=== PATIENT | female | born 1995 | race African-American/Black ===

== ENCOUNTER 2021-01-17 14:40 | Emergency (ER) | payer BC ==
[~2021-01-17] VITALS: Ht 167.6 cm; Wt 70.0 kg
[~2021-01-17 14:40] MED LIST: AMOXICILLIN500 MG PO; AMOXICILLIN875 MG PO; AUGMENTIN875TAB PO; AZITHROMYCIN250 MG PO; CLARITIN10 M2 PO; CORTISPORIN OTI10 M2 AD; DEPO-MEDROL40 MG/ML IM; FLEXERIL5 M1 OR; FLEXERIL5 M1 PO; FLONASE SPRAY50 MC1; FLUTICASONE50 MCG; MEDDOSEPAK PO; MOTRIN200 MG; MOTRIN800 MG/TAB PO; NAPROSYN500 MG OR; NAPROSYN500 MG PO; PREVACID30 M2 PO; ROCEPHIN 1 GM1 GM IJ; ROCEPHIN 1 GM1 GM IM; SINGULAIR PO; TRAMADOL HCL50 MG PO; ZITHROMAX250 MG PO; ZOFRAN ODT4 MG PO; ZYRTEC10 M1; [UNRECOGNIZED DRUG - OTHER]
[2021-01-17 16:46] LABS: URINE BILIRUBIN - DIPSTICK NEGATIVE (NEGATIVE); URINE BLOOD DIPSTICK MODERATE (NEGATIVE); URINE COLOR YELLOW; URINE GLUCOSE - DIPSTICK NEGATIVE (NEGATIVE); URINE KETONE 40 mg/dL (NEGATIVE); URINE LEUK ESTERASE NEGATIVE (NEGATIVE); URINE PROTEIN - DIPSTICK NEGATIVE (NEG-TRACE); URINE UROBILINOGEN - DIPSTICK 0.2 E.U./dL (0.2)
[2021-01-17 16:47] LABS: URINE NITRITE - DIPSTICK NEGATIVE (Negative)
[2021-01-17 16:54] LABS: URINE SQUAMOUS EPITHELIAL CELL FEW EPI/hpf (0-FEW); URINE WBC 0-2 WBC/hpf (0-5)
[2021-01-17] MEDS ORDERED: TORADOL PO (17:09)
[2021-01-17] MEDS ORDERED: ONDANSETRON4 MG PO (17:09)
[2021-01-17 17:51] VITALS: BP 140/84
== END 2021-01-17 17:52 | disposition home or self-care (01) | DRG 103 ==
LOC: ED 14:40
PROVIDERS: Family Medicine
DX: R51.9 Headache, unspecified (principal); R10.30 Lower abdominal pain, unspecified; R19.7 Diarrhea, unspecified; F41.9 Anxiety disorder, unspecified

== ENCOUNTER 2021-01-25 19:08 | Emergency (ER) | payer BC ==
[~2021-01-25] VITALS: Ht 167.6 cm; Wt 50.0 kg
[~2021-01-25 19:08] MED LIST changes: +ONDANSETRON4 MG PO; +TORADOL PO
[2021-01-25 20:30] LABS: HEMATOCRIT 35.7 % (37.0-47.0); HEMOGLOBIN 12.2 g/dl (12.0-16.0); IMMATURE GRANULOCYTES 0.1 % (0.0-5.0); MEAN CELL VOLUME 82.8 fL CALC (80.0-100.0); MEAN CORPUSCULAR HGB 28.3 pG CALC (26.0-32.0); MEAN CORPUSCULAR HGB CONC 34.2 g/dL CAL (32.0-36.0); NEUT# 2.98 thou/uL (2.00-7.15); RED BLOOD COUNT 4.31 mill/uL (4.20-5.60); RED CELL DISTRI WIDTH 13.7 % (11.5-15.5)
[2021-01-25 20:32] LABS: URINE BILIRUBIN - DIPSTICK NEGATIVE (NEGATIVE); URINE BLOOD DIPSTICK TRACE-INTACT (NEGATIVE); URINE COLOR YELLOW; URINE GLUCOSE - DIPSTICK NEGATIVE (NEGATIVE); URINE KETONE 40 mg/dL (NEGATIVE); URINE LEUK ESTERASE NEGATIVE (NEGATIVE); URINE PROTEIN - DIPSTICK NEGATIVE (NEG-TRACE); URINE SPECIFIC GRAVITY 1.025; URINE UROBILINOGEN - DIPSTICK 0.2 E.U./dL (0.2)
[2021-01-25 20:33] LABS: URINE NITRITE - DIPSTICK NEGATIVE (Negative)
[2021-01-25 20:48] LABS: ALBUMIN 4.5 g/dL (3.2-5.0); ALKALINE PHOSPHATASE 45 u/l (38-126); AMYLASE 117 u/l (30-110); ANION GAP 11 (6-22 (CALC)); BUN 11 mg/dL (7-17); BUN/CREATININE RATIO 16 (12-20 (CALC)); CARBON DIOXIDE 23 mmol/l (22-30); CHLORIDE 105 mmol/l (95-108); CREATININE 0.7 mg/dL (0.5-1.0); GFR > 60 ML/MIN (>=60 (CALC)); GFR FOR AFR.AMER. > 60 ML/MIN (>=60 (CALC)); LIPASE 43 u/l (23-300); POTASSIUM 3.9 mmol/l (3.5-5.1); SGOT/AST 24 u/l (14-36); SODIUM 136 mmol/l (137-146); TOTAL PROTEIN 7.9 g/dL (6.3-8.2)
[2021-01-25 20:55] LABS: BILIRUBIN, TOTAL 0.7 mg/dL (0.0-1.4)
[2021-01-25] MEDS ORDERED: MIRALAX17 GM PO (21:28)
[2021-01-25] MEDS ORDERED: CITRATE OF MEGNESIA PO (21:28)
[2021-01-25 21:55] VITALS: BP 118/77
== END 2021-01-25 22:04 | disposition home or self-care (01) | DRG 392 ==
LOC: ED 19:08
PROVIDERS: Family Medicine
DX: K59.00 Constipation, unspecified (principal); F41.9 Anxiety disorder, unspecified

== ENCOUNTER 2021-06-02 18:58 | Emergency (ER) | payer BC ==
[~2021-06-02] VITALS: Ht 167.6 cm; Wt 50.9 kg
[~2021-06-02 18:58] MED LIST changes: +CITRATE OF MEGNESIA PO; +MIRALAX17 GM PO
[2021-06-02 19:38] LABS: HEMATOCRIT 38.1 % (37.0-47.0); HEMOGLOBIN 13.1 g/dl (12.0-16.0); MEAN CELL VOLUME 83.9 fL CALC (80.0-100.0); MEAN CORPUSCULAR HGB 28.9 pG CALC (26.0-32.0); MEAN CORPUSCULAR HGB CONC 34.4 g/dL CAL (32.0-36.0); NEUT# 3.93 thou/uL (2.00-7.15); RED BLOOD COUNT 4.54 mill/uL (4.20-5.60); RED CELL DISTRI WIDTH 13.7 % (11.5-15.5)
[2021-06-02 19:47] LABS: D-DIMER 0.7 mg/L (0.19-0.60)
[2021-06-02 19:51] LABS: ACT PARTIAL THROMBO TIME 26.7 SECONDS (20.0-32.5); PROTHROMBIN TIME 10.7 SECONDS (9.0-12.5)
[2021-06-02 19:58] LABS: ALBUMIN 4.7 g/dL (3.2-5.0); ALKALINE PHOSPHATASE 66 u/l (38-126); AMYLASE 157 u/l (30-110); ANION GAP 12 (6-22 (CALC)); BILIRUBIN, TOTAL 0.9 mg/dL (0.0-1.4); BUN 14 mg/dL (7-17); BUN/CREATININE RATIO 14 (12-20 (CALC)); CARBON DIOXIDE 25 mmol/l (22-30); CHLORIDE 105 mmol/l (95-108); GFR > 60 ML/MIN (>=60 (CALC)); GFR FOR AFR.AMER. > 60 ML/MIN (>=60 (CALC)); LIPASE 81 u/l (23-300); POTASSIUM 3.3 mmol/l (3.5-5.1); SGOT/AST 27 u/l (14-36); SODIUM 138 mmol/l (137-146)
[2021-06-02 20:10] LABS: MYOGLOBIN 19 ng/mL (0 - 62)
[2021-06-02] MEDS ORDERED: TORADOL PO (21:45)
[2021-06-02 21:50] VITALS: BP 133/77
== END 2021-06-02 21:55 | disposition home or self-care (01) | DRG 313 ==
LOC: ED 18:58
PROVIDERS: Family Medicine
DX: R07.89 Other chest pain (principal); F41.9 Anxiety disorder, unspecified
CPT/HCPCS: Q9967

== ENCOUNTER 2021-06-21 09:30 | Emergency (ER) | payer OTHER, BC ==
[~2021-06-21] VITALS: Ht 167.6 cm; Wt 55.0 kg
[2021-06-21 10:50] VITALS: BP 126/87
[2021-06-21 11:10] LABS: URINE BILIRUBIN - DIPSTICK NEGATIVE (NEGATIVE); URINE BLOOD DIPSTICK MODERATE (NEGATIVE); URINE COLOR YELLOW; URINE GLUCOSE - DIPSTICK NEGATIVE (NEGATIVE); URINE KETONE NEGATIVE (NEGATIVE); URINE LEUK ESTERASE NEGATIVE (NEGATIVE); URINE PH 5.5 (4.5-8.0); URINE PROTEIN - DIPSTICK NEGATIVE (NEG-TRACE); URINE SPECIFIC GRAVITY 1.025; URINE UROBILINOGEN - DIPSTICK 0.2 E.U./dL (0.2)
[2021-06-21 11:14] LABS: URINE NITRITE - DIPSTICK NEGATIVE (Negative)
[2021-06-21 11:20] LABS: URINE SQUAMOUS EPITHELIAL CELL FEW EPI/hpf (0-FEW); URINE WBC 0-2 WBC/hpf (0-5)
== END 2021-06-21 10:45 | disposition left against medical advice (07) | DRG 951 ==
LOC: ED 09:30 → LWOBS 10:45 → ED 10:45 → LWOBS 10:50
PROVIDERS: Family Medicine
DX: Z91.19 Patient's noncompliance with other medical treatment and regimen (principal); M54.2 Cervicalgia; M54.50 Low back pain, unspecified; V89.2XXA Person injured in unspecified motor-vehicle accident, traffic, initial encounter

== ENCOUNTER 2021-07-25 16:24 | Emergency (ER) | payer BC ==
[~2021-07-25] VITALS: Ht 167.6 cm; Wt 60.0 kg
[2021-07-25 16:48] LABS: HEMATOCRIT 37.5 % (37.0-47.0); HEMOGLOBIN 13.3 g/dl (12.0-16.0); IMMATURE GRANULOCYTES 0.1 % (0.0-5.0); MEAN CELL VOLUME 82.6 fL CALC (80.0-100.0); MEAN CORPUSCULAR HGB 29.3 pG CALC (26.0-32.0); MEAN CORPUSCULAR HGB CONC 35.5 g/dL CAL (32.0-36.0); NEUT# 5.4 thou/uL (2.00-7.15); RED BLOOD COUNT 4.54 mill/uL (4.20-5.60); RED CELL DISTRI WIDTH 13.5 % (11.5-15.5)
[2021-07-25 17:02] LABS: ALBUMIN 5.1 g/dL (3.2-5.0); ALKALINE PHOSPHATASE 65 u/l (38-126); AMYLASE 142 u/l (30-110); BUN 8 mg/dL (7-17); BUN/CREATININE RATIO 13 (12-20 (CALC)); CHLORIDE 106 mmol/l (95-108); CREATININE 0.6 mg/dL (0.5-1.0); GFR > 60 ML/MIN (>=60 (CALC)); GFR FOR AFR.AMER. > 60 ML/MIN (>=60 (CALC)); LIPASE 47 u/l (23-300); POTASSIUM 3.8 mmol/l (3.5-5.1); SGOT/AST 36 u/l (14-36); SODIUM 138 mmol/l (137-146)
[2021-07-25 17:07] LABS: ANION GAP 19 (6-22 (CALC)); BILIRUBIN, TOTAL 1.4 mg/dL (0.0-1.4); CARBON DIOXIDE 17 mmol/l (22-30)
[2021-07-25 18:55] LABS: URINE BILIRUBIN - DIPSTICK NEGATIVE (NEGATIVE); URINE BLOOD DIPSTICK LARGE (NEGATIVE); URINE COLOR YELLOW; URINE GLUCOSE - DIPSTICK NEGATIVE (NEGATIVE); URINE KETONE 15 mg/dL (NEGATIVE); URINE LEUK ESTERASE NEGATIVE (NEGATIVE); URINE NITRITE - DIPSTICK NEGATIVE (Negative); URINE PROTEIN - DIPSTICK NEGATIVE (NEG-TRACE); URINE UROBILINOGEN - DIPSTICK 0.2 E.U./dL (0.2)
[2021-07-25 19:03] LABS: URINE SQUAMOUS EPITHELIAL CELL FEW EPI/hpf (0-FEW); URINE WBC 0-2 WBC/hpf (0-5)
[2021-07-25] MEDS ORDERED: ONDANSETRON4 MG PO (19:18)
[2021-07-25] MEDS ORDERED: CIPROFLOXACN500 MG PO (19:18)
[2021-07-25] MEDS ORDERED: ULTRAM50 M1 PO (19:19)
[2021-07-25 20:04] VITALS: BP 110/60
== END 2021-07-25 20:08 | disposition home or self-care (01) | DRG 392 ==
LOC: ED 16:24
PROVIDERS: Emergency Medicine
DX: K52.9 Noninfective gastroenteritis and colitis, unspecified (principal); F41.9 Anxiety disorder, unspecified; Z20.822 Contact with and (suspected) exposure to COVID-19
CPT/HCPCS: Q9967

== ENCOUNTER 2021-09-23 14:14 | Observation (INO) | payer BC ==
[~2021-09-23] VITALS: Ht 167.6 cm; Wt 50.0 kg
[~2021-09-23 14:14] MED LIST changes: +CIPROFLOXACN500 MG PO; +ULTRAM50 M1 PO
--- NOTE | 2021-09-23 14:14 | NUR ---
PATIENT TO ROOM VIA EMS STRETCHER.
--- NOTE | 2021-09-23 14:30 | NUR ---
PT SHIVERING, MOANING IN PAIN, ASKING FOR PAIN MEDICATION-DR GIRALDO NOTIFIED.
[2021-09-23 15:05] LABS: HEMATOCRIT 42.3 % (37.0-47.0); HEMOGLOBIN 14.5 g/dl (12.0-16.0); IMMATURE GRANULOCYTES 0.1 % (0.0-5.0); MEAN CELL VOLUME 84.6 fL CALC (80.0-100.0); MEAN CORPUSCULAR HGB CONC 34.3 g/dL CAL (32.0-36.0); NEUT# 6.17 thou/uL (2.00-7.15); RED CELL DISTRI WIDTH 13.8 % (11.5-15.5)
--- NOTE | 2021-09-23 15:15 | NUR ---
PT MEDICATED FOR NAUSEA AND PAIN. PT UNHAPPY WITH TORADOL AND STATES THE "LAST TIME IT DIDN'T WORK-THEY GAVE ME MORPHINE AND IT WORKED RIGHT AWAY." WILL CONTINUE TO MONITOR PATIENT.
[2021-09-23 15:25] LABS: ALBUMIN 5.2 g/dL (3.2-5.0); ALKALINE PHOSPHATASE 82 u/l (38-126); BUN 10 mg/dL (7-17); BUN/CREATININE RATIO 13 (12-20 (CALC)); CHLORIDE 103 mmol/l (95-108); CREATININE 0.8 mg/dL (0.5-1.0); GFR > 60 ML/MIN (>=60 (CALC)); GFR FOR AFR.AMER. > 60 ML/MIN (>=60 (CALC)); LIPASE 39 u/l (23-300); SGOT/AST 39 u/l (14-36); SODIUM 140 mmol/l (137-146); TOTAL PROTEIN 9.5 g/dL (6.3-8.2)
[2021-09-23 15:26] LABS: ANION GAP 19 (6-22 (CALC)); BILIRUBIN, TOTAL 0.8 mg/dL (0.0-1.4); CARBON DIOXIDE 21 mmol/l (22-30); POTASSIUM 2.9 mmol/l (3.5-5.1)
--- NOTE | 2021-09-23 16:15 | NUR ---
PT RECEIVED MORPHINE FOR PAIN, REASSESSED AND PT REPORT PAIN MINIMAL. PT STATES NAUSEA RESOLVED. WILL CONTINUE TO MONITOR.
--- NOTE | 2021-09-23 17:15 | NUR ---
ORDERS FOR MAGNESIUM AND POTASSIUM OBTAINE-DR GIRALDO INSTRUCTS TO PLACE AN ADDITION PIV. THIS RN WITH 2 UNSUCCESSFUL IV STARTS. STATISTICAL ANALYST NOTIFIED.
[2021-09-23 17:36] LABS: URINE BILIRUBIN - DIPSTICK NEGATIVE (NEGATIVE); URINE BLOOD DIPSTICK MODERATE (NEGATIVE); URINE COLOR YELLOW; URINE GLUCOSE - DIPSTICK NEGATIVE (NEGATIVE); URINE KETONE 15 mg/dL (NEGATIVE); URINE LEUK ESTERASE NEGATIVE (NEGATIVE); URINE PROTEIN - DIPSTICK NEGATIVE (NEG-TRACE); URINE UROBILINOGEN - DIPSTICK 0.2 E.U./dL (0.2)
[2021-09-23 17:38] LABS: URINE NITRITE - DIPSTICK NEGATIVE (Negative)
[2021-09-23 17:44] LABS: URINE SQUAMOUS EPITHELIAL CELL FEW EPI/hpf (0-FEW); URINE WBC 0-2 WBC/hpf (0-5)
--- NOTE | 2021-09-23 18:15 | NUR ---
PT'S IV SITES LAC AND L WRIST, CLEAN DRY AND INTACT-MEDICATIONS INFUSING PER ORDER. PT DENIES PAIN AT THIS TIME AND NO COMPLAINT OF NAUSEA. PT AWARE OF ADMISSION AND AGREEABLE. PT STABLE. WILL CONTINUE TO MONITOR.
--- NOTE | 2021-09-23 19:15 | NUR ---
PT RESTING ON ED BED, WATCHING TV. DENIES NEEDS. WILL CONTINUE TO MONITOR.
--- NOTE | 2021-09-23 19:36 | NUR ---
CALL PLACED TO ICU-NURSE UNABLE TO TAKE CALLAT THIS TIME.
--- NOTE | 2021-09-23 19:55 | NUR ---
SBAR REPORT GIVEN TO [facility]. PT TO GO TO ROOM 2.
--- NOTE | 2021-09-23 20:00 | NUR ---
PT TAKEN TO ICU VIA WHEELCHAIR IN STABLE CONDITION. PT'S PAPEWORK AND BELONGINGS HANDED OFF TO [facility].
--- NOTE | 2021-09-23 20:10 | NUR ---
RECEIVED FROM ER VIA WC. PATIENT AMBULATES WITH STABLE STANCE AND STEADY GAIT. PLACED ON TIMBER HARVESTER OPERATOR SHOWING SR. RESP NON-LABORED. LUNGS CLEAR. ABD FLAT, SOFT WITH ACTIVE BOWEL SOUNDS. IV IN LAC WITH NS INFUSING AT 125 ML/HR AND K RIDER AT 50 ML/HR. SALINE LOCK IN PLACE IN LW. BOTH SITES BENIGN. DISCUSSED PLAN OF CARE. DENIES NEEDS AT THIS TIME. CALL NICKERSON IN REACH.
--- NOTE | 2021-09-24 | NUR ---
SLEEPING SOUNDLY. RESP NON-LABORED. VSS. SR ON MONITOR.
[2021-09-24 00:13] VITALS: BP 91/45
[2021-09-24 04:00] VITALS: BP 85/50
--- NOTE | 2021-09-24 04:00 | NUR ---
ASLEEP. RESP NON-LABORED. VSS. SR ON MONITOR.
[2021-09-24 05:54] LABS: IMMATURE GRANULOCYTES 0.1 % (0.0-5.0); MEAN CELL VOLUME 86.9 fL CALC (80.0-100.0); MEAN CORPUSCULAR HGB 29.8 pG CALC (26.0-32.0); MEAN CORPUSCULAR HGB CONC 34.3 g/dL CAL (32.0-36.0); NEUT# 4.95 thou/uL (2.00-7.15); RED BLOOD COUNT 3.82 mill/uL (4.20-5.60)
[2021-09-24 05:55] LABS: HEMATOCRIT 33.2 % (37.0-47.0); HEMOGLOBIN 11.4 g/dl (12.0-16.0)
[2021-09-24 06:01] LABS: ALKALINE PHOSPHATASE 45 u/l (38-126); BUN 5 mg/dL (7-17); BUN/CREATININE RATIO 8 (12-20 (CALC)); CARBON DIOXIDE 22 mmol/l (22-30); CHLORIDE 112 mmol/l (95-108); CREATININE 0.6 mg/dL (0.5-1.0); GFR > 60 ML/MIN (>=60 (CALC)); GFR FOR AFR.AMER. > 60 ML/MIN (>=60 (CALC)); MAGNESIUM 2.2 mg/dL (1.6-2.3); SGOT/AST 21 u/l (14-36); SODIUM 136 mmol/l (137-146)
[2021-09-24 06:02] VITALS: BP 85/50
[2021-09-24 06:02] LABS: ALBUMIN 2.9 g/dL (3.2-5.0); ANION GAP 6 (6-22 (CALC)); BILIRUBIN, TOTAL 0.4 mg/dL (0.0-1.4); POTASSIUM 3.7 mmol/l (3.5-5.1); TOTAL PROTEIN 5.5 g/dL (6.3-8.2)
--- NOTE | 2021-09-24 07:00 | NUR ---
REPORT RECEIVED FORM SHANTEL DE. CARE ASSUMED.
--- NOTE | 2021-09-24 07:30 | NUR ---
PATIENT RESTING IN BED WITH EYES CLOSED AROUSES TO VERBAL STIMLLUI. ALERT AND ORIENTEDC X3. SHIFT ASSESSEMTN COMPLETED AT THIS TIME. IV PATENT X2. CALL LIGHT IN REACH. WILL CONTINUE TO MONITOR.
[2021-09-24 08:00] VITALS: BP 105/71
--- NOTE | 2021-09-24 08:07 | NUR ---
PATIENT SET UP FOR AM MEAL AT THIS ITME.
--- NOTE | 2021-09-24 09:22 | NUR ---
DR REDDY AT BEDSIDE TO DISCUSS PLAN OF CARE
[2021-09-24] MEDS ORDERED: ONDANSETRON4 MG PO (09:58)
[2021-09-24 10:00] VITALS: BP 112/61
--- NOTE | 2021-09-24 10:30 | NUR ---
IV DC'D X2. CATH TIPS INTACT PATIENT TOLERATED WELL. PATIENT GETTING DRESSED AT THIS TIME AND CALLING FOR A RIDE.
--- NOTE | 2021-09-24 11:10 | NUR ---
Discharge instructions given. Patient verbalizes understanding of same. Discharged in stable condition via Ambulatory to Home with staff. All belongings sent with pt.
== END 2021-09-24 11:10 | disposition home or self-care (01) | DRG 392 ==
LOC: ED 14:14 → ED-I 17:12 → ED 17:40 → ICU 17:41
PROVIDERS: Family Medicine; ADMIT Internal Medicine; ATTEND Internal Medicine
DX: R11.2 Nausea with vomiting, unspecified (principal); E87.6 Hypokalemia; F41.9 Anxiety disorder, unspecified; Z20.822 Contact with and (suspected) exposure to COVID-19
CPT/HCPCS: J3475; Q9967

== ENCOUNTER 2022-07-05 08:44 | Emergency (ER) | payer BC ==
[~2022-07-05] VITALS: Ht 167.6 cm; Wt 61.0 kg
[2022-07-05] VITALS (9 sets, daily range): BP systolic 125–150; BP diastolic 78–105
[2022-07-05 09:22] LABS: HEMOGLOBIN 14.3 g/dl (12.0-16.0); IMMATURE GRANULOCYTES 0.2 % (0.0-5.0); MEAN CORPUSCULAR HGB 28.9 pG CALC (26.0-32.0); MEAN CORPUSCULAR HGB CONC 34.9 g/dL CAL (32.0-36.0); NEUT# 2.56 thou/uL (2.00-7.15); RED BLOOD COUNT 4.94 mill/uL (4.20-5.60); RED CELL DISTRI WIDTH 13.3 % (11.5-15.5)
[2022-07-05 09:44] LABS: ALKALINE PHOSPHATASE 66 u/l (38-126); ANION GAP 13 (6-22 (CALC)); BUN 14 mg/dL (7-17); BUN/CREATININE RATIO 17 (12-20 (CALC)); CARBON DIOXIDE 23 mmol/l (22-30); CHLORIDE 105 mmol/l (95-108); CREATININE 0.8 mg/dL (0.5-1.0); GFR FOR AFR.AMER. > 60 ML/MIN (>=60 (CALC)); GFR OTHER RACES > 60 ML/MIN (>=60 (CALC)); LIPASE 42 u/l (23-300); POTASSIUM 3.5 mmol/l (3.5-5.1); SGOT/AST 25 u/l (14-36); SODIUM 138 mmol/l (137-146)
[2022-07-05 10:28] LABS: BILIRUBIN, TOTAL 0.8 mg/dL (0.0-1.4); TOTAL PROTEIN 8.1 g/dL (6.3-8.2)
[2022-07-05 11:18] LABS: URINE BILIRUBIN - DIPSTICK NEGATIVE (NEGATIVE); URINE BLOOD DIPSTICK LARGE (NEGATIVE); URINE COLOR YELLOW; URINE GLUCOSE - DIPSTICK NEGATIVE (NEGATIVE); URINE KETONE >=80 mg/dL (NEGATIVE); URINE LEUK ESTERASE NEGATIVE (NEGATIVE); URINE NITRITE - DIPSTICK NEGATIVE (Negative); URINE PROTEIN - DIPSTICK NEGATIVE (NEG-TRACE); URINE SPECIFIC GRAVITY 1.025; URINE UROBILINOGEN - DIPSTICK 0.2 E.U./dL (0.2)
[2022-07-05] MEDS ORDERED: IMODIUM2 MG PO (11:32)
[2022-07-05] MEDS ORDERED: ZOFRAN4 MG/TAB PO (11:32)
[2022-07-05] MEDS ORDERED: CIPROFLOXACN500 MG PO (11:32)
[2022-07-05 11:36] LABS: URINE RBC 0-2 RBC/hpf (0-5); URINE SQUAMOUS EPITHELIAL CELL FEW EPI/hpf (0-FEW); URINE WBC 0-2 WBC/hpf (0-5)
== END 2022-07-05 11:52 | disposition home or self-care (01) | DRG 392 ==
LOC: ED 08:44
PROVIDERS: Emergency Medicine
DX: K52.9 Noninfective gastroenteritis and colitis, unspecified (principal); E86.0 Dehydration; F41.9 Anxiety disorder, unspecified
CPT/HCPCS: Q9967

== ENCOUNTER 2022-08-23 09:25 | Emergency (ER) | payer BC ==
[~2022-08-23] VITALS: Ht 167.6 cm; Wt 54.1 kg
[2022-08-23] VITALS (8 sets, daily range): BP systolic 111–126; BP diastolic 76–94
[~2022-08-23 09:25] MED LIST changes: +IMODIUM2 MG PO; +ZOFRAN4 MG/TAB PO
[2022-08-23 09:56] LABS: BASO% 0.6 % (0-3); EOS% 1.7 % (0-8); HEMATOCRIT 36.3 % (37.0-47.0); HEMOGLOBIN 13.1 g/dl (12.0-16.0); LYMPH% 47.8 % (15-41); MEAN CELL VOLUME 82.9 fL CALC (80.0-100.0); MEAN CORPUSCULAR HGB 29.9 pG CALC (26.0-32.0); MEAN CORPUSCULAR HGB CONC 36.1 g/dL CAL (32.0-36.0); MONO% 9.6 % (2-13); NEUT# 2.09 thou/uL (2.00-7.15); NEUT% 40.3 % (42-76); RED BLOOD COUNT 4.38 mill/uL (4.20-5.60); RED CELL DISTRI WIDTH 13.4 % (11.5-15.5)
[2022-08-23] MEDS ORDERED: MIRTAZAPINE15 MG PO (10:03)
[2022-08-23 10:13] LABS: ALBUMIN 4.4 g/dL (3.2-5.0); ALKALINE PHOSPHATASE 58 u/l (38-126); BILIRUBIN, TOTAL 0.6 mg/dL (0.0-1.4); BUN 10 mg/dL (7-17); BUN/CREATININE RATIO 14 (12-20 (CALC)); CARBON DIOXIDE 22 mmol/l (22-30); CHLORIDE 107 mmol/l (95-108); CREATININE 0.7 mg/dL (0.5-1.0); GFR FOR AFR.AMER. > 60 ML/MIN (>=60 (CALC)); GFR OTHER RACES > 60 ML/MIN (>=60 (CALC)); LIPASE 46 u/l (23-300); SGOT/AST 22 u/l (14-36); SODIUM 137 mmol/l (137-146); TOTAL PROTEIN 7.6 g/dL (6.3-8.2)
[2022-08-23 10:14] LABS: ANION GAP 12 (6-22 (CALC)); POTASSIUM 4.3 mmol/l (3.5-5.1)
[2022-08-23 10:16] LABS: URINE BILIRUBIN - DIPSTICK NEGATIVE (NEGATIVE); URINE BLOOD DIPSTICK SMALL (NEGATIVE); URINE COLOR YELLOW; URINE GLUCOSE - DIPSTICK NEGATIVE (NEGATIVE); URINE KETONE 15 mg/dL (NEGATIVE); URINE LEUK ESTERASE NEGATIVE (NEGATIVE); URINE PROTEIN - DIPSTICK NEGATIVE (NEG-TRACE); URINE SPECIFIC GRAVITY 1.015; URINE UROBILINOGEN - DIPSTICK 0.2 E.U./dL (0.2)
[2022-08-23 10:34] LABS: URINE NITRITE - DIPSTICK NEGATIVE (Negative)
[2022-08-23 10:35] LABS: URINE EPITHELIAL CELLS FEW EPI/hpf (0-FEW)
[2022-08-23] MEDS ORDERED: PROTONIX20 M1 PO (10:55)
== END 2022-08-23 11:04 | disposition home or self-care (01) | DRG 392 ==
LOC: ED 09:25
PROVIDERS: Family Medicine
DX: R10.13 Epigastric pain (principal)

== ENCOUNTER 2022-12-15 18:13 | Emergency (ER) | payer BC ==
[~2022-12-15] VITALS: Ht 167.6 cm; Wt 54.4 kg
[2022-12-15] VITALS (8 sets, daily range): BP systolic 95–150; BP diastolic 49–103
[~2022-12-15 18:13] MED LIST changes: +MIRTAZAPINE15 MG PO; +PROTONIX20 M1 PO
[2022-12-15 19:27] LABS: BASO% 0.3 % (0-3); EOS% 0.3 % (0-8); HEMATOCRIT 41.1 % (37.0-47.0); HEMOGLOBIN 13.9 g/dl (12.0-16.0); IMMATURE GRANULOCYTES 0.2 % (0.0-5.0); LYMPH% 17.4 % (15-41); MEAN CELL VOLUME 83.4 fL CALC (80.0-100.0); MEAN CORPUSCULAR HGB 28.2 pG CALC (26.0-32.0); MEAN CORPUSCULAR HGB CONC 33.8 g/dL CAL (32.0-36.0); MONO% 4.2 % (2-13); NEUT# 8.14 thou/uL (2.00-7.15); NEUT% 77.6 % (42-76); RED BLOOD COUNT 4.93 mill/uL (4.20-5.60); RED CELL DISTRI WIDTH 14.2 % (11.5-15.5)
[2022-12-15 19:42] LABS: ALBUMIN 4.9 g/dL (3.2-5.0); ALKALINE PHOSPHATASE 73 u/l (38-126); ANION GAP 17 (6-22 (CALC)); BILIRUBIN, TOTAL 0.5 mg/dL (0.02-1.3); BUN 10 mg/dL (7-17); BUN/CREATININE RATIO 13 (12-20 (CALC)); CARBON DIOXIDE 21 mmol/l (22-30); CHLORIDE 108 mmol/l (95-108); CREATININE 0.8 mg/dL (0.5-1.0); GFR FOR AFR.AMER. > 60 ML/MIN (>=60 (CALC)); GFR OTHER RACES > 60 ML/MIN (>=60 (CALC)); LIPASE 35 u/l (23-300); POTASSIUM 3.8 mmol/l (3.5-5.1); SGOT/AST 37 u/l (14-36); SODIUM 142 mmol/l (137-146); TOTAL PROTEIN 8.7 g/dL (6.3-8.2)
== END 2022-12-16 | disposition left against medical advice (07) | DRG 392 ==
LOC: ED 18:13
PROVIDERS: Family Medicine
DX: R10.33 Periumbilical pain (principal); R10.32 Left lower quadrant pain; R10.31 Right lower quadrant pain; Z53.29 Procedure and treatment not carried out because of patient's decision for other reasons; F41.9 Anxiety disorder, unspecified
CPT/HCPCS: Q9967; S0164